=== PATIENT | female | born 1995 | race American Indian/Alaskan Native ===

== ENCOUNTER 2017-08-12 01:48 | Emergency (ER) | payer SELFPAY ==
[2017-08-12 03:28] VITALS: BP 123/73
== END 2017-08-12 03:30 | disposition left against medical advice (07) ==
LOC: ED 01:48
DX: M79.606 Pain in leg, unspecified (principal); Z53.21 Procedure and treatment not carried out due to patient leaving prior to being seen by health care provider

== ENCOUNTER → 2021-07-08 | Emergency (ER) | payer SELFPAY ==
--- NOTE | 2021-07-08 17:55 | Event Note ---
ED Screening Note ED Screening Note: pelvic pain for two days sore throat, rhinorrhea, headache took an OTC test and reports positive LNMP april 11 no fever +nausea/vomiting no diarrhea no bleeding no dysuria no pmhx no allergies to meds /P:0/A:1 This initial assessment/diagnostic orders/clinical plan/treatment(s) is/are subject to change based on patients health status, clinical progression and re- assessment by fellow clinical providers in the ED. Further treatment and workup at subsequent clinical providers discretion. Patient/guardian urged not to elope from the ED as their condition may be serious if not clinically assessed and managed. Initial orders include: labs, UA if hcg is elevated will order US
== END | disposition left against medical advice (07) ==
LOC: ED 14:58
DX: J34.89 Other specified disorders of nose and nasal sinuses (principal); R51.9 Headache, unspecified; R10.2 Pelvic and perineal pain; Z53.21 Procedure and treatment not carried out due to patient leaving prior to being seen by health care provider